=== PATIENT | female | born 1950 | race African-American/Black ===

== ENCOUNTER 2017-12-20 14:20 | Emergency (ER) | payer OTHER ==
--- NOTE | 2017-12-20 15:10 | RAD ---
FOUR VIEWS LEFT KNEE: HISTORY: Left knee pain. FINDINGS: AP, lateral, and both oblique views left knee obtained. Four views left knee demonstrate joint space narrowing in the medial compartment of the left knee. T here are osteophytes which are extensive in the medial compartment with severe medial compartment lef t knee osteoarthritis. Osteophytes are also seen in the lateral compartment and anterior compartment s of the left knee. IMPRESSION: Moderate to severe left knee osteoarthritis. POS: [facility]
== END 2017-12-20 15:57 | disposition home or self-care (01) ==
LOC: ERS 14:20
DX: M17.12 Unilateral primary osteoarthritis, left knee (principal); M19.90 Unspecified osteoarthritis, unspecified site; F31.9 Bipolar disorder, unspecified

== ENCOUNTER 2020-02-19 11:26 | Emergency (ER) | payer MEDICARE, OTHER ==
[2020-02-19 12:49] LABS: Bilirubin Negative (Negative); Blood, Urine Negative (Negative); Clarity Clear (Clear); Glucose, Urine (Dipstick) Normal (Negative); Ketone, Urine Negative (Negative); Leukocyte Negative Leu/uL (Negative); Nitrite Negative (Negative); Protein, Urine (Dipstick) Negative (Neg-Trace); Urobilinogen Normal mg/dL (Less than 2)
== END 2020-02-19 13:38 | disposition home or self-care (01) ==
LOC: ERS 11:26
DX: R60.0 Localized edema (principal); R30.0 Dysuria; M19.90 Unspecified osteoarthritis, unspecified site; Z79.899 Other long term (current) drug therapy
CPT/HCPCS: 81003; 99284

== ENCOUNTER 2021-01-24 11:46 | Outpatient (CLI) | payer MEDICARE, MEDICAID | END 2021-01-24 11:47 | disposition home or self-care (01) | LOC: BICMAMMO 11:46 | PROVIDERS: ATTEND Nurse Practitioner Family | DX: Z12.31 Encounter for screening mammogram for malignant neoplasm of breast (principal); R92.1 Mammographic calcification found on diagnostic imaging of breast | CPT/HCPCS: 77063; 77067 ==

== ENCOUNTER 2021-06-13 10:04 | Outpatient (CLI) | payer MEDICARE, MEDICAID | END 2021-06-13 10:05 | disposition home or self-care (01) | LOC: BICMAMMO 10:04 | PROVIDERS: ATTEND Nurse Practitioner Family | DX: R92.1 Mammographic calcification found on diagnostic imaging of breast (principal) | CPT/HCPCS: 77066; G0279 ==

== ENCOUNTER 2021-10-03 12:39 | Emergency (ER) | payer MEDICARE, MEDICAID | END 2021-10-03 14:00 | disposition home or self-care (01) | LOC: ERS 12:39 | DX: G89.29 Other chronic pain (principal); M25.571 Pain in right ankle and joints of right foot ==